=== PATIENT | female | born 1960 | race Caucasian/White ===

== ENCOUNTER 2017-12-11 20:45 | Emergency (ER) | payer OTHER ==
[~2017-12-11] VITALS: Ht 165.1 cm; Wt 81.7 kg
[2017-12-11] MEDS ORDERED: METFORMIN HCL500 MG (21:17)
[2017-12-11] MEDS ORDERED: ZESTRIL20 MG PO (21:17)
[2017-12-11] MEDS ORDERED: LEVOTHYROXINE100 MC1 IV (21:17)
[2017-12-11] MEDS ORDERED: JANUVIA50 MG PO (21:19)
[2017-12-11 22:08] LABS: ABSOLUTE EOSINOPHILS 0.1 thou/uL (0.0-0.7); ABSOLUTE LYMPHOCYTES 2.4 thou/uL (0.8-5.3); ABSOLUTE MONOCYTES 0.5 thou/uL (0.0-1.2); ABSOLUTE NEUTROPHILS 3.2 thou/uL (1.6-8.1); BASOPHILS 0.5 %; EOSINOPHILS 1.4 %; HEMATOCRIT 41.6 % (37.0-47.0); HEMOGLOBIN 14.4 gm/dL (12.0-15.0); LYMPHOCYTES 38.6 %; MCH 30.7 pg (26.0-34.0); MCHC 34.6 g/dL (28.0-37.0); MCV 88.7 fL (80.0-100.0); MONOCYTES 7.6 %; MPV 7.7 fl. (7.2-11.1); NUCLEATED RBCS 0 /100WBC; PLATELET COUNT* 409 thou/uL (150-400); POLYS 51.9 %; RBC 4.69 mil/uL (4.20-5.00); RDW-CV 12.7 % (10.5-14.5); WBC 6.2 thou/uL (4.0-11.0)
[2017-12-11 22:17] LABS: ANION GAP 14 mmol/L (7-16); BUN 17 mg/dL (7-18); CALCIUM 9.1 mg/dL (8.5-10.1); CHLORIDE 101 mmol/L (98-107); CO2 23 mmol/L (21-32); GLUCOSE 169 mg/dL (70-99); POTASSIUM 3.5 mmol/L (3.5-5.1); SODIUM 138 mmol/L (136-145)
[2017-12-11 22:24] LABS: ALBUMIN 3.8 g/dL (3.4-5.0); ALKALINE PHOSPHATASE 49 U/L (46-116); SGOT 49 U/L (15-37); SGPT 85 U/L (30-65); TOTAL BILIRUBIN 0.5 mg/dL (<0.1-1.0); TOTAL PROTEIN 6.7 g/dL (6.4-8.2); TROPONIN-I LEVEL <0.06 ng/mL (<0.06)
[2017-12-11 23:20] VITALS: BP 126/82
[2017-12-11] MEDS ORDERED: PEPCID20 MG PO (23:45)
[2017-12-11] MEDS ORDERED: PREDNISONE 20 M20 M1 PO (23:45)
--- NOTE | 2017-12-12 12:51 | EKG ---
[place] [address] ELECTROCARDIOGRAM REPORT Name: ARNULFOSOHAIL GÓMEZ Kaycee Room: [facility]#: [id number] Admission: 12/11/17 Attend Phys: Discharge: 12/11/17 Date of : 58 Report #: [id number] THIS REPORT FOR: //name// [facility] ED Test Date: 2017-12-11 Test Time: 22:05:20 Pat Name: SOHAIL ARREDONDO Department: Room: Gender: F Managing Director [employer]: CARMEN Arnold : 1960 Requested By: Haydee Zheng Order Number: [id number] MD: Rashard Ponce Measurements Intervals [place] Rate: 97 P: 47 VA: 141 QRS: 34 QRSD: 92 T: 23 QT: 356 QTc: 452 Interpretive Statements Sinus rhythm Low voltage, precordial leads No previous ECG available for comparison Electronically Signed On 12-12-2017 12:51:22 [employer] by Rashard Ponce [email or web address] <ELECTRONICALLY SIGNED> By: Rashard Ponce MD, [facility] 12/12/17 1251 [id number] Rashard Ponce MD, FACC /EPI
== END 2017-12-11 23:20 | disposition home or self-care (01) ==
LOC: M.ERS 20:45
PROVIDERS: Nurse Practitioner Family
DX: T78.1XXA Other adverse food reactions, not elsewhere classified, initial encounter (principal); Z90.710 Acquired absence of both cervix and uterus; Z88.2 Allergy status to sulfonamides; Z91.02 Food additives allergy status; X58.XXXA Exposure to other specified factors, initial encounter